=== PATIENT | male | born 1950 | race Caucasian/White ===

== ENCOUNTER 2020-11-02 16:56 | Emergency (ER) | payer MEDICARE, SELFPAY ==
[2020-11-02 16:57] VITALS: BP 142/102; PULSE 90; RESP 16; TEMP 36.6; O2SAT 96; BMI 30.7
--- NOTE | 2020-11-02 17:36 | XR_ITS ---
PROCEDURE INFORMATION: Exam: XR Chest Exam date and time: 11/02/2020 5:36 PM Age: 70 years old Clinical indication: Cough TECHNIQUE: Imaging protocol: XR of the chest. Views: 2 views. COMPARISON: No relevant prior studies available. FINDINGS: Lungs: Unremarkable. No consolidation. Pleural spaces: Unremarkable. No pleural effusion. No pneumothorax. Heart/Mediastinum: Unremarkable. No cardiomegaly. Bones/joints: Unremarkable. IMPRESSION: No acute findings.
[2020-11-02 18:36] LABS: Basophils # 0.1 K/mm3 (0-0.2); Basophils % 0.6 % (0.1-2.0); Eosinophils # 0.3 K/mm3 (0.0-0.4); Eosinophils % 2.5 % (0.1-12.0); Hematocrit 44.7 % (42.0-52.0); Hemoglobin 14.2 g/dL (14.1-18.0); Lymphocytes # 2.1 K/mm3 (0.7-4.5); Lymphocytes % 18.9 % (10-50); Mean Corpuscular HGB Conc 31.8 g/dL (31.8-35.4); Mean Corpuscular Hemoglobin 30.3 pg (27.0-31.2); Mean Corpuscular Volume 95.2 fl (80-94); Mean Platelet Volume 8.9 fl (7.4-10.4); Monocytes # 0.8 K/mm3 (0.1-1.0); Monocytes % 6.8 % (1.7-9.3); Neutrophils # 7.8 K/mm3 (1.8-7.8); Neutrophils % 71.2 % (37.0-80.0); Platelet Count 317 K/mm3 (142-424); Red Blood Count 4.69 M/mm3 (4.60-6.20); Red Cell Distribution Width 12.8 % (11.5-17.5); White Blood Count 10.9 K/mm3 (4.8-10.8)
[2020-11-02 18:48] LABS: Alanine Aminotransferase 40 U/L (12-78); Albumin Level 3.9 g/dl (3.5-5.0); Albumin/Globulin Ratio 1.1 (1.1-1.8); Alkaline Phosphatase 126 U/L (38-126); Anion Gap 14.4 mEq/L (5-15); Aspartate Amino Transferase 31 U/L (17-59); Bilirubin,Total 0.4 mg/dl (0.2-1.3); Blood Urea Nitrogen 13 mg/dl (9-20); Calcium 8.7 mg/dl (8.4-10.2); Carbon Dioxide 28 mmol/L (22.0-30.0); Chloride 98 mmol/L (98-107); Creatinine Clearance Estimated 98 mL/min (50-200); Estimated Glomerular Filt Rate 112 ml/min (>60); GFR (African American) 135 ML/MIN (>60); Globulin 3.5 g/dL (1.3-3.2); Potassium 4.4 mmoL/L (3.5-5.1); Sodium 136 mmol/L (136-145); Total Protein,Serum 7.4 g/dl (6.3-8.2)
[2020-11-02 18:52] LABS: Glucose 452 mg/dl (74-100)
[2020-11-02 21:42] VITALS: BP 179/89; PULSE 91; RESP 20; TEMP 36.8; O2SAT 94
--- NOTE | 2020-12-23 12:02 | [facility].EDGENADL ---
ED Disposition Clinical Impression: Cellulitis and abscess of foot Disposition: Home, Self-Care Condition on Discharge: Good Instructions: DI for Skin Abscess Prescriptions: cephALEXin [Cephalexin 500mg Tab] 500 mg PO Q6H 7 Days #28 tab Prescription Printed Referrals: Provider,Referral, [Primary Care Provider] - - Critical Care Critical Care Time: No Attestation: On 11/02/20, the high probability of a clinically significant, sudden or life threatening deterioration of the following system(s) required my full and direct attention, intervention and personal management. The time I documented below is in addition to time spent performing reported procedures but includes the following listed in this critical care notation. Medical Decision Making - [place] Inquiry Pt receiving controlled substance: No Vital Signs: 11/02/20 16:57 11/02/20 21:42 Temperature 98 F 98.3 F Temperature Source Oral Oral Pulse Rate 91 H Pulse Rate [Radial] 90 Respiratory Rate 16 20 Blood Pressure 179/89 H Blood Pressure [Right Arm] 142/102 H Blood Pressure Mean [Right Arm] 115 Blood Pressure Source Automatic Cuff Blood Pressure Position Supine Blood Pressure Position [Right Arm] Sitting 02 Sat by Pulse Oximetry 96 Oxygen Delivery Method Nasal Cannula Room Air - Lab Data Lab Results 11/02/20 18:25: WBC 10.9 H, RBC 4.69, Hgb 14.2, Hct 44.7, MCV 95.2 H, MCH 30.3, MCHC 31.8, RDW 12.8, Plt Count 317, MPV 8.9, Neut % (Auto) 71.2, Lymph % (Auto) 18.9, [place] % (Auto) 6.8, Eos % (Auto) 2.5, Baso % (Auto) 0.6, Neut # (Auto) 7.8, Lymph # (Auto) 2.1, [place] # (Auto) 0.8, Eos # (Auto) 0.3, Baso # (Auto) 0.1 11/02/20 18:25: Sodium 136, Potassium 4.4, Chloride 98, Carbon Dioxide 28, Anion Gap 14.4, BUN 13, Creatinine 0.70, Estimated Creat Clear 98, Estimated GFR 112, Est GFR ( Amer) 135, Glucose 452 H*, Calcium 8.7, Total Bilirubin 0.4, AST 31, ALT 40, Alkaline Phosphatase 126, Total Protein 7.4, Albumin 3.9, Globulin 3.5 H, Albumin/Globulin Ratio 1.1 Result diagrams: 11/02/20 18:25 11/02/20 18:25 Orders (Tests/Meds): ED MEDICATIONS Discontinued Medications Generic Name Dose Route Start Last Admin Trade Name Adelfo PRN Reason Stop Dose Admin Cephalexin HCl 500 mg 11/02/20 21:25 11/02/20 21:35 Cephalexin 500mg Capsule PO 11/02/20 21:26 500 mg ONCE ONE Administration Medical Decision Narrative: Patient is a 70-year-old male presenting to the emergency department chief complaint of right lower extremity erythema and swelling. Diagnosis includes arthropod bite, contact dermatitis, cellulitis, abscess among others. Physical exam is most consistent with cellulitis given the warm swollen right lower extremity without significant ballotable area. Was hyperglycemic while here in the emergency department, obtained CBC, CMP, chest x-ray, hyperglycemia was discussed with the patient, he was offered insulin, as well as told that he needed follow-up for diabetes, patient stated that he was not interested, denies any past history of diabetes. Discussed new diabetic management, as well as follow-up with primary care physician with the patient. Patient was given cephalexin while here in the emergency department due to concern for cellulitis, as well as discharged with a prescription for cephalexin. He was instructed to follow-up with his primary care physician for further assessment of his new onset diabetes, diabetic management as well as for reassessment of his foot. General Adult HPI - General Chief complaint: Skin/Abscess/Foreign Body Stated complaint: POSS SPIDER BITE Time Seen by Provider: 11/02/20 17:30 Mode of Arrival: EMS Limitations: No Limitations Description of Symptoms (Recalled from ER Triage Doc. by RN): TO ED PER SQUAD WITH C/O BUG BITE RT LOWER LEG THIS AM. C/O PAIN AND REDNESS - History of Present Illness HPI narrative: Patient is a 70-year-old male presenting to the emergency department krishna
== END 2020-11-02 21:45 | disposition home or self-care (01) ==
PROVIDERS: Emergency Medicine; Emergency Provider Emergency Medicine
DX: S80.861A Insect bite (nonvenomous), right lower leg, initial encounter (principal); R05 Cough
CPT/HCPCS: 71046; 80053; 85025; 99283